=== PATIENT | female | born 1960 | race Caucasian/White ===

== ENCOUNTER → 2020-07-16 | Outpatient (CLI) | payer BC ==
--- NOTE | 2020-07-16 14:58 | BD ---
EXAMINATION TYPE: Axial Bone Density DATE OF EXAM: 07/16/2020 COMPARISON: NONE CLINICAL HISTORY: 59 YR OLD FEMALE...ICD-10 CODE: Z78.0 POST MENOPAUSAL Height: 65.5 Weight: 131 FRAX RISK QUESTIONS: Family History (Parent hip fracture): YES RISK FACTORS HISTORY OF: FRACTURED TOE ONLY IN THE PAST Family History of Osteoporosis: YES, HER MOTHER WITH HIP FX AND PELVIS FXS Postmenopausal woman: YES AT ABOUT AGE 51 Take estrogen and/or progesterone medications: ONLY BCPs IN THE PAST, NONE NOW Lost more than 2 inches in height since high school: YES, 5'10" IN HIGH SCHOOL Hyperparathyroidism: NO Adrenal Insufficiency: NO MEDICATIONS: Additional Medications: BP MEDS, MARIJUANA SMOKER, MELATONIN, AND SLEEP AID, MULTIVITAMIN Additional History: OSTEOARTHRITIS, EXAM MEASUREMENTS: Bone mineral densitometry was performed using the [employer]. Bone mineral density as measured about the Lumbar spine is: ----- L1-L4(G/cm2): 1.215 T Score Values are as follows: ----- L1: 0.1 ----- L2: 0.0 ----- L3: 0.5 ----- L4: 0.4 ----- L1-L4: 0.3 Bone mineral density FIRST BONE DENSITY AT [facility] Bone mineral density about the R hip (g/cm2): 0.710 Bone mineral density about the L hip (g/cm2): 0.638 T Score values are as follows: -----R Neck: -1.9 -----L Neck: -2.2 -----R Total: -2.4 -----L Total: -2.9 Bone mineral density FIRST BONE DENSITY AT [facility] FRAX%s: THERE IS A 18.3% CHANCE FOR A MAJOR OSTEOPOROTIC FX AND A 1.7% FOR HIP.....PROBABILITY FOR FX IN 10 YRS TIME IMPRESSION: Osteopenia (T Score between -2.5 and -1). There is slightly increased risk of fracture and the patient may be considered for treatment. Re-Screen 2-5 years. NOTE: T-SCORE=SD OF THE YOUNG ADULT MEAN.
--- NOTE | 2020-07-17 11:28 | MM ---
Reason for exam: screening (asymptomatic). Last mammogram was performed 16 years ago. History: Patient is postmenopausal. Benign cyst aspiration of the left breast, July 28, 2004. Benign cyst aspiration of the right breast, July 28, 2004. Benign ultrasound-guided cyst aspiration of the left breast, July 28, 2004. Benign ultrasound-guided cyst aspiration of the left breast, July 28, 2004. Benign ultrasound-guided cyst aspiration of the left breast, July 28, 2004. 4 cyst aspirations of the left breast. Cyst aspiration of the right breast. Excisional biopsy of the left breast. Took hormonal contraceptives for 4 years. Physical Findings: A clinical breast exam by your physician is recommended on an annual basis and results should be correlated with mammographic findings. MG Screening Mammo w CAD Bilateral CC and MLO view(s) were taken. No prior studies available for comparison. Finding #1: There are varied sized, high density masses located 4 cm from the nipple on the left breast and 5-6 cm from the nipple on the right breast. Finding #2: There are indeterminate calcifications in both breasts. ASSESSMENT: Incomplete: need additional imaging evaluation, BI-RAD 0 RECOMMENDATION: Special view mammogram and ultrasound of both breasts. [facility] will attempt to contact patient to return for supplemental views and ultrasound.
== END | disposition home or self-care (01) ==
LOC: RADMAMWWP 07:37
PROVIDERS: ATTEND Family Medicine
DX: Z12.31 Encounter for screening mammogram for malignant neoplasm of breast (principal); M85.80 Other specified disorders of bone density and structure, unspecified site; Z78.0 Asymptomatic menopausal state
CPT/HCPCS: 77067; 77080

== ENCOUNTER → 2020-08-28 | Outpatient (CLI) | payer BC ==
--- NOTE | 2020-08-30 11:02 | MM ---
Reason for exam: additional evaluation requested from abnormal screening. Last mammogram was performed 1 month ago. History: Patient is postmenopausal. Benign cyst aspiration of the left breast, July 28, 2004. Benign cyst aspiration of the right breast, July 28, 2004. Benign ultrasound-guided cyst aspiration of the left breast, July 28, 2004. Benign ultrasound-guided cyst aspiration of the left breast, July 28, 2004. Benign ultrasound-guided cyst aspiration of the left breast, July 28, 2004. 4 cyst aspirations of the left breast. Cyst aspiration of the right breast. Excisional biopsy of the left breast. Took hormonal contraceptives for 4 years. Physical Findings: Nurse did not find any significant physical abnormalities on exam. MG 3D Work Up W/Cad TENZIN Bilateral spot compression CC and spot compression LM view(s) were taken. CC with magnification and LM with magnification view(s) were taken of the right breast. Prior study comparison: July 16, 2020, bilateral MG screening mammo w CAD. Finding: There are intermediate concern, suspicious, fine, grouped/clustered calcifications in the upper inner quadrant, anterior position of the right breast 2cm from the nipple. Asymmetries left breast, ultrasound recommended. Focal asymmetry. New finding since July 16, 2020. These results were verbally communicated with the patient and result sheet given to the patient on 08/28/20. ASSESSMENT: Incomplete: need additional imaging evaluation, BI-RAD 0 RECOMMENDATION: Ultrasound of both breasts. Stereotactic core biopsy of the right breast. (right breast calcification) Called Dr. Rojas's office with mammographic findings and has scheduled an appointment for the patient for 09/26/20 at 11:[address] Dolan. Ultrasound biopsy scheduled for 09/26/20 at 1 o'clock. Stereotactic core biopsy scheduled for 10/04/20 at 8 o'clock. PRELIMINARY REPORT CALLED AND FAXED TO DR. DOLAN ON 08/30/20.
--- NOTE | 2020-08-30 11:07 | USB ---
Reason for exam: additional evaluation requested from abnormal screening. History: Patient is postmenopausal. Benign cyst aspiration of the left breast, July 28, 2004. Benign cyst aspiration of the right breast, July 28, 2004. Benign ultrasound-guided cyst aspiration of the left breast, July 28, 2004. Benign ultrasound-guided cyst aspiration of the left breast, July 28, 2004. Benign ultrasound-guided cyst aspiration of the left breast, July 28, 2004. 4 cyst aspirations of the left breast. Cyst aspiration of the right breast. Excisional biopsy of the left breast. Took hormonal contraceptives for 4 years. US Breast Workup TENZIN Right complete breast ultrasound includes all four quadrants, the retroareolar region and axilla. Finding demonstrates a 0.7 x 0.6 x 0.3cm vascular lesion, possible node at 8 o'clock, a 0.9 x 0.9 x 0.7cm solid, hypoechoic lesion at 9 o'clock and a 0.3 x 0.3 x 0.3cm mixed lesion at 10 o'clock. Follow up in 6 months depending on other biopsy results. Left complete breast ultrasound includes all four quadrants, the retroareolar region and axilla. Finding demonstrates a 1.1 x 1.2 x 0.8cm solid, hypoechoic lesion at 3 o'clock, cyst aspiration or biopsy recommended, a 2.0 x 1.9cm duct with debris at 4 o'clock, questionable papilloma, follow up or biopsy depending on other biopsy results and a 1.1 x 1.1 x 1.2cm solid, hypoechoic lesion at 6 o'clock, biopsy recommended. These results were verbally communicated with the patient and result sheet given to the patient on 08/28/20. ASSESSMENT: Suspicious, BI-RAD 4 RECOMMENDATION: Ultrasound core biopsy of the left breast. (x 2) Stereotactic core biopsy of the right breast. (right calcification) Called Dr. Rojas's office with mammographic findings and has scheduled an appointment for the patient for 09/26/20 at 11:[address] Dolan. Ultrasound biopsy scheduled for 09/26/20 at 1 o'clock. Stereotactic core biopsy scheduled for 10/04/20 at 8 o'clock. PRELIMINARY REPORT CALLED AND FAXED TO DR. DOLAN ON 08/30/20.
== END | disposition home or self-care (01) ==
LOC: RADMAMWWP 08:47
PROVIDERS: ATTEND Family Medicine
DX: R92.8 Other abnormal and inconclusive findings on diagnostic imaging of breast (principal)
CPT/HCPCS: 77062; 77066

== ENCOUNTER → 2020-09-26 | Outpatient (CLI) | payer BC ==
--- NOTE | 2020-09-26 11:40 | P.GSHP ---
History of Present Illness H&P Date: 09/26/20 Chief Complaint: abnromal mamogram and ultrasond of the breast Shantanu is a 60 year old whtie female seen for DF. Rojas with a complaint of abnormal she had a bilateral diagnostic mammogram performed on 1220 [id number]. This revealed microcalcifications in the right breast and some densities in the left breast. Bilateral diagnostic mammograms were recommended. On the right breast finding/grouped calcifications were noted in the upper inner quadrant and in the left breast some asymmetries were noted ultrasound is recommended of both breasts. The diagnostic mammogram was performed and 2321 as were the ultrasounds. Ultrasound of the right breast revealed a 0.7 x 0.6 cm vascular lesion possible noted 8:00, a 0.9 x 0.9 cm solid lesion at 9:00, and a 0.3 x 0.3 cm lesion at 10:00 follow-up in 6 months depending another biopsy was recommended Left breast ultrasound revealed a 1.1 cm solid lesion at 3:00 cyst aspiration or biopsy recommended, a 2 x 1.9 cm duct with debris at 4:00 questionable papilloma, follow-up or biopsy depending another biopsy results and a 1.1 x 1.2 cm solid lesion at 6:00 biopsy recommended. The final recommendation was stereotactic core biopsy of the right breast with a repeat ultrasound in 6 months depending on biopsy results Ultrasound core biopsy of the left breast 2 sites with questionable biopsy of the dilated duct depending on results of the biopsy. She does not feel any lumps masses or nodules in her breast. Her last mamogram prior to this was about 15 years ago. She denies feeling depressed but had decided to be healthy and therefore had a screening mammogram performed. She is not complaining of any new lumps masses or nodules in her breast. She has no new nipple discharge or skin changes. She is not reporting any history of recent trauma or infection in the breast. She had a left breast cyst removed in the operating room approximately 20 years ago. She has not had any other surgery on her breast. She did have the COVID vaccine within several weeks proximity to the follow-up mammogram. She did have flu like symptoms after the vaccine. She did not notice any swollen nodes. Caffeine: 10/cups of coffee day nicotine: none reg-bromine: daily Family history: father: lung cancer smoker nephew: leukemia Hormonal History: menarche: 11 , 1 miscarriage 1 , age at first : 18, breast fed: yes menopause: 51 BCP: 5 years hormones: none Surgical history: Right knee replacement Cyst removed in left breast Medical History: none Social History: smoke: none alcohol: twice a week/ 1 or 2 beer drugs: Marijuana daily, for anxiety - Constitutional Constitutional: Reports sweats - EENT Comment: bilateral cataracts Eyes: denies blurred vision, denies pain Ears: deny: decreased hearing, tinnitus Ears, nose, mouth and throat: Reports headache, Denies sore throat - Breasts Breasts: bilateral: as per HPI - Cardiovascular Cardiovascular: Denies chest pain, Denies shortness of breath - Respiratory Respiratory: Denies cough, Denies 7 - Gastrointestinal Gastrointestinal: Denies abdominal pain, Denies diarrhea, Denies nausea, Denies vomiting - Genitourinary (Female) Genitourinary: Denies dysuria, Denies hematuria - Menstruation Menstruation: Reports postmenopausal - Musculoskeletal Musculoskeletal: Denies myalgias - Integumentary Integumentary: Reports pruritus, Denies rash - Neurological Neurological: Denies numbness, Denies weakness - Psychiatric Psychiatric: Reports anxiety, Reports depression - Endocrine Endocrine: Denies fatigue, Denies weight change - Hematologic/Lymphatic Comment: none - Allergic/Immunologic Allergic/Immunologic: Reports as per HPI Past Medical History Past Medical History: Osteoarthritis (OA) Additional Past Medical History / Comment(s): 09/21/14 Pt admitted to floor s/p total R knee surgery. Other HX: past hx. migraines. Benign Breasts cysts and have been excised History of Any Multi-Drug Resistant Organisms: None Reported Past Surgical History: Breast Surgery, Joint Replacement Additional Past Surgical History / Comment(s): 11/19/14 Total R knee arthroplasy, breast biopsies, D & C Past Anesthesia/Blood Transfusion Reactions: Motion Sickness Past Psychological History: Anxiety Smoking Status: Former smoker Past Alcohol Use History: Occasional Past Drug Use History: None Reported - Past Family History Mother Family Medical History: Deep Vein Thrombosis (DVT) Father Family Medical History: Cancer Medications and Allergies Home Medications Medication Instructions Recorded Confirmed Type Ascorbic Acid [Vitamin C] 500 mg PO DAILY 11/19/14 09/26/20 History Melatonin 1 mg PO HS 09/18/20 09/26/20 History Multivitamins, Thera [Multivitamin 1 tab PO DAILY 09/18/20 09/26/20 History (formulary)] cloNIDine HCL [Catapres] 0.2 mg PO HS 09/18/20 09/26/20 History Allergies Allergy/AdvReac Type Severity Reaction Status Date / Time No Known Allergies Allergy Verified 09/26/20 11:08 Surgical - Exam Vital Signs Temp Pulse Resp BP Pulse Ox 98.0 F 89 18 127/76 96 09/26/20 11:09 09/26/20 11:09 09/26/20 11:09/26/20 11:09 09/26/20 11:09 BMI 21.5 - General well developed - Eyes normal ocular movement - ENT normal pinna, normal nares - Neck no masses, trachea midline - Respiratory normal expansion, normal respiratory effort - Cardiovascular Rhythm: regular Heart Sounds: normal: S1, S2 - Abdomen Abdomen: soft - Integumentary normal turgor - Neurologic no disoriented, no combative - Musculoskeletal normal gait - Psychiatric oriented to time, oriented to person, oriented to place, speech is normal, memory intact breast exam: BRA: 36B inspection: Bilateral grade 3 ptosis Palpation: Right breast: Multi-positional exam fibrocystic changes, no dominant masses or nodules of concern Right axilla: No adenopathy of concern Left breast: Multi-positional exam fibrocystic changes, no dominant masses or nodules of concern Left axilla: No adenopathy of concern Results Mammogram and ultrasound results reviewed Assessment and Plan Assessment: Impression: 1. Bilateral radiographic breast abnormalities Right breast with microcalcifications for which stereotactic core biopsy is recommended, left breast ultrasound abnormalities for which ultrasound-guided core biopsy of 2 areas is recommended. 2. Fibrocystic breast changes 3. Anxiety 4. Night sweats 5. Heavy caffeine intake/10 cups of coffee per day Plan: 1. Ultrasound core biopsy 2 areas of concern in the left breast 2. Stereotactic core biopsy of the right breast 3. Follow-up after biopsies for further recommendation 4. Patient recommended to decrease caffeine intake to help decrease fibrocystic breast changes The patient is going to have a stereotactic core biopsy of the right breast, depending on the pathology she would either have a repeat right breast ultrasound and mammogram in 6 months or for some ultrasound core biopsy of the other lesions noted in the right breast. The patient is going to have ultrasound core biopsy of 2 areas of concern in the left breast, if these are nonbilious and she will most likely have a repeat left breast mammogram and ultrasound in 6 months with is any concern on the pathology. Which was possibly dilated duct will be recommended for core biopsy as well. Cc: Dr. Rojas
== END | disposition home or self-care (01) ==

== ENCOUNTER → 2020-09-26 | Day surgery (SDC) | payer BC ==
[2020-09-26 12:35] VITALS: RESP 16
[2020-09-26 13:49] VITALS: BP 127/81; PULSE 73; TEMP 98.1
--- NOTE | 2020-09-26 14:25 | USB ---
EXAMINATION TYPE: US biopsy breast VAD LT, US biopsy breast add'l VAD LT, US biopsy breast add'l VAD LT, MG diagnostic mammo LT wo CAD DATE OF EXAM: 09/26/2020 CLINICAL HISTORY: R92.8 Abnormal Mammogram 2 site. Abnormal ultrasound. TECHNIQUE: Ultrasound guided core biopsy of left breast with clip placement- based sites and follow-up diagnostic left breast mammogram. COMPARISON: Prior bilateral breast ultrasound and mammogram August 28, 2020. FINDINGS: The procedure of ultrasound guided core biopsy was explained to the patient. Benefits, alternatives, and risks were discussed. An informed consent was then obtained. The patient was placed in supine positioning for imaging and for the procedure. Case reviewed with surgeon prior to procedure. Surgeon wishes to defer right- sided sampling of the most suspicious 9:00 lesion until after right-sided stereotactic guided core biopsy. Preprocedure ultrasound redemonstrates 3 suspicious areas left breast. The overlying skin was prepped and draped in usual sterile fashion. Lidocaine is used as anesthetic into the skin and subcutaneous tissue up to area of concern in the left breast. Lidocaine with epinephrine is used as anesthetic in the deeper tissues. Under ultrasound guidance, a fine needle aspiration attempt at the 3:00 lesion with 18-gauge needle is unsuccessful in retrieving fluid. Following this, 2 core samples obtained at all sites utilizing vacuum-assisted biopsy device. Following this, a biopsy clip was left in each lesion. The patient tolerated the procedure well without any immediate complication. The patient was kept in the radiology department for short stay after the procedure and then discharged home in stable condition. Postprocedure mammogram confirms successful deployment of all 3 clips. IMPRESSION: Successful, uncomplicated ultrasound guided core biopsy of 3 areas of concern in the left breast, full pathology results to follow. Intermediate index of suspicion noted at 3:00 and 6:00 lesions. Low to intermediate index of suspicion noted at 4:00 lesion. Pathology Results: Benign A. LEFT BREAST, 3:00 POSITION, CORE BIOPSY: Fragments of benign fibrotic cyst with focal microcalcification and hypocellular stromal fibrosis. Current specimen negative for diagnostic in situ or invasive carcinoma. B. LEFT BREAST, 4:00 POSITION, CORE BIOPSY: Hypocellular stromal fibrosis with focal microcalcification and focal usual ductal hyperplasia. Current specimen negative for diagnostic in situ or invasive carcinoma. C. LEFT BREAST, 6:00 POSITION, CORE BIOPSY: Fragments of benign fibrotic cyst with microcalcification. Current specimen negative for diagnostic in situ or invasive carcinoma. Recommendation Follow up ultrasound of the left breast in 6 months. MTDD
== END ==
LOC: RADUSWWP 11:43
PROVIDERS: ATTEND Surgery
DX: N60.12 Diffuse cystic mastopathy of left breast (principal); R92.0 Mammographic microcalcification found on diagnostic imaging of breast; N62 Hypertrophy of breast; R92.8 Other abnormal and inconclusive findings on diagnostic imaging of breast
CPT/HCPCS: 88305; 77065; 19083; 19084 ×2; A4648; J2001

== ENCOUNTER → 2020-10-04 | Day surgery (SDC) | payer BC ==
[2020-10-04 07:22] VITALS: RESP 16; TEMP 98.2
[2020-10-04 08:44] VITALS: BP 153/80; PULSE 83
--- NOTE | 2020-10-04 09:06 | P.PCN ---
Date of Procedure: 10/04/20 Preoperative Diagnosis: Microcalcifications of concern right breast upper inner quadrant Postoperative Diagnosis: Same Procedure(s) Performed: Right breast stereotactic core biopsy Anesthesia: local Surgeon: Brianda Dolan Pathology: other (Breast tissue, positive calcifications in specimen) Condition: stable Disposition: same day Indications for Procedure: Microcalcifications right breast upper inner quadrant of concern Operative Findings: Microcalcifications noted in specimen Description of Procedure: Shantanu is a 60-year-old white female who was noted on a mammogram to have suspicious calcifications in the right breast. These were in the upper inner quadrant. Stereotactic core biopsy was recommended. Risks and benefits of the procedure were discussed with the patient. She understood and wished to proceed. The patient was taken to the stereotactic core biopsy wound. A blaster helper film was obtained. A lateral to medial approach was utilized. The area of concern was noted to be present on the blaster helper film. The breast was prepped using Betadine. 20 mL of 1% lidocaine were used anesthetize the area of concern. A 9-gauge retrocystic rotating biopsy needle was driven to the correct coordinates. The needle was fired. A postoperative film was obtained and revealed the needle to be in the correct location. All specimens were obtained. Radiograph of the specimens revealed the microcalcifications of concern had been sampled. A top. At secure regina marker was placed. This was noted to be in the correct location. The patient tolerated the procedure in stable condition. The breast was sent to pathology. The patient will follow-up with Dr. Miguel in 1 week. Of importance is the fact that the patient has had the ultrasound core biopsies of the contralateral left breast. Pathology and each of these was benign and felt to be benign concordant. The patient and her were told the information regarding the core biopsy results on the left breast. Impression: 1. Ultrasound core biopsy benign left breast repeat left breast mammogram and ultrasound in 6 months 2. Await results of right breast stereotactic core biopsy Cc: Dr. Rojas
--- NOTE | 2020-10-04 16:53 | MM ---
EXAMINATION TYPE: MG stereo VAD BX RT DATE OF EXAM: 10/04/2020 COMPARISON: 08/28/2020 and 07/16/2020 CLINICAL HISTORY: 60-year-old female status post recent ultrasound-guided biopsy 3 sites of the left breast. Here for stereotactic core needle biopsy right breast for lateral anterior microcalcifications. TECHNIQUE: Stereotactic guided core biopsy of the right breast. FINDINGS: The procedure of stereotactic guided core biopsy was explained to the patient. Benefits, alternatives, and risks were discussed. An informed consent was then obtained. [facility]. Shortness pathway was a lateral approach. I performed the localization, then surgeon, Dr. Lamont Zamarripa performed the remainder of the procedure. A vacuum assisted biopsy gun was used to obtain multiple core samples. The patient tolerated the procedure well without any immediate complication. The patient was kept in the radiology department for short stay after the procedure and then discharged home in stable condition. Targeted calcifications are identified in specimen mammogram. Post biopsy mammogram shows the clip to appear in satisfactory position relative to the targeted area of concern on the preprocedure images. IMPRESSION: SUCCESSFUL, UNCOMPLICATED STEREOTACTIC GUIDED CORE BIOPSY OF ANTERIOR LATERAL RIGHT BREAST MICROCALCIFICATIONS. FULL PATHOLOGY RESULTS TO FOLLOW. RECOMMENDATION: 1. Await pathology results of the lateral anterior right breast microcalcifications. 2. If benign results, bilateral diagnostic mammograms in 6 months as well as right breast ultrasound for the 9:00 and 10:00 areas. Pathology Results: Benign RIGHT BREAST, STEREOTACTIC CORE BIOPSY: Fibrocystic changes including fibrosis, cysts, columnar cell change and microcalcifications. Features focally suggestive of ruptured cyst with associated histiocytes and dystrophic calcifications. Recommendation 1. Follow up bilateral diagnositic mammograms in 6 months as above. 2. Also, 6 month followup right breast ultrasound for the 9 and 10:00 areas. [facility]
== END ==
LOC: RADMAMWWP 07:03
PROVIDERS: ATTEND Surgery
DX: N60.11 Diffuse cystic mastopathy of right breast (principal); R92.0 Mammographic microcalcification found on diagnostic imaging of breast
CPT/HCPCS: 88305; 19081; A4648; J2001

== ENCOUNTER → 2020-10-11 | Outpatient (CLI) | payer BC ==
[2020-10-11 11:08] VITALS: BP 143/91; PULSE 77; RESP 18; TEMP 97.4
--- NOTE | 2020-10-11 11:22 | P.PN ---
Progress Note - Text Progress Note Date: 10/11/20 Shantanu is a 60-year-old white female who comes in for results a stereotactic core biopsy of the right breast. Pathology revealed fibrocystic changes including fibrosis, cysts, columnar cell change, and microcalcifications. Features focally suggestive of ruptured cyst with associated histiocytes and dystrophic calcifications. This was felt to be benign specific. [place] [address]. The patient also had 3 areas of concern biopsied in the left breast. Ultrasound core biopsy these were also benign and felt to be benign concordant. She tolerated the biopsy without difficulty. She has no complaints at this time. Physical Exam: bilateral breast incision sites clean and dry, resolving ecchymosis, no evidence of infection or hematoma Impression: 1. Bilateral breast biopsies benign/cystic changes Plan: 1. Bilateral mammogram in 6 months with left breast ultrasound and physician exam at that time I discussed the results of the biopsy with the patient. She understands. If she notices anything of concern prior to this 6 months she will come and see us sooner. The patient is going to attempt to decrease caffeine intake. She does not smoke and is not exposed to secondhand smoke. CC: Dr. Rojas
== END ==
LOC: WWCWWP 11:00
PROVIDERS: ATTEND Surgery
DX: N60.11 Diffuse cystic mastopathy of right breast (principal); N60.12 Diffuse cystic mastopathy of left breast

== ENCOUNTER → 2021-04-08 | Outpatient (CLI) | payer BC ==
--- NOTE | 2021-04-08 10:01 | MM ---
Reason for exam: follow-up at short interval from prior study. Last mammogram was performed 6 months ago. History: Patient is postmenopausal. Benign MG stereo VAD BX RT of the right breast, October 04, 2020. Benign US biopsy breast VAD LT of the left breast, September 26, 2020. Benign US biopsy breast add'l VAD LT of the left breast, September 26, 2020. Benign US biopsy breast add'l VAD LT of the left breast, September 26, 2020. Benign cyst aspiration of the left breast, July 28, 2004. Benign cyst aspiration of the right breast, July 28, 2004. Benign ultrasound-guided cyst aspiration of the left breast, July 28, 2004. Benign ultrasound-guided cyst aspiration of the left breast, July 28, 2004. Benign ultrasound-guided cyst aspiration of the left breast, July 28, 2004. 4 cyst aspirations of the left breast. Cyst aspiration of the right breast. Excisional biopsy of the left breast. Took hormonal contraceptives for 4 years. Physical Findings: Nurse Summary: 1 x 1cm nodle in the right breast at 10 o'clock (nurse ts). MG Diagnostic Mammo w CAD TENZIN Bilateral CC and MLO view(s) were taken. Prior study comparison: September 26, 2020, left breast MG diagnostic mammo LT wo CAD. August 28, 2020, bilateral MG 3d work up w/cad TENZIN. July 16, 2020, bilateral MG screening mammo w CAD. The breast tissue is heterogeneously dense. This may lower the sensitivity of mammography. Previous mammotome biopsy in the right breast x 1 and in the left breast x 3. There is chronic nodularity in the right breast. Palpable marker right upper outer quadrant. Multiple areas of asymmetric densities are redemonstrated bilaterally. Medial central nodularity left breast is decreased. These results were verbally communicated with the patient and result sheet given to the patient on 04/08/21. ASSESSMENT: Incomplete: need additional imaging evaluation, BI-RAD 0 RECOMMENDATION: Ultrasound of both breasts.
--- NOTE | 2021-04-08 10:16 | USB ---
Reason for exam: additional evaluation requested from abnormal screening. History: Patient is postmenopausal. Benign MG stereo VAD BX RT of the right breast, October 04, 2020. Benign US biopsy breast VAD LT of the left breast, September 26, 2020. Benign US biopsy breast add'l VAD LT of the left breast, September 26, 2020. Benign US biopsy breast add'l VAD LT of the left breast, September 26, 2020. Benign cyst aspiration of the left breast, July 28, 2004. Benign cyst aspiration of the right breast, July 28, 2004. Benign ultrasound-guided cyst aspiration of the left breast, July 28, 2004. Benign ultrasound-guided cyst aspiration of the left breast, July 28, 2004. Benign ultrasound-guided cyst aspiration of the left breast, July 28, 2004. 4 cyst aspirations of the left breast. Cyst aspiration of the right breast. Excisional biopsy of the left breast. Took hormonal contraceptives for 4 years. US Breast BILAT Right complete breast ultrasound includes all four quadrants, the retroareolar region and axilla. Finding demonstrates a 0.3 x 0.3 x 0.2cm oval, cystic lesion at 8 o'clock, a 0.3 x 0.3 x 0.2cm oval, cystic lesion at 9 o'clock, a 0.9 x 0.9 x 0.7cm oval, hypoechoic lesion at 10 o'clock, stable, possible debris filled cyst, a 0.5 x 0.5 x 0.3cm oval, cystic lesion at 11 o'clock near BB, dense tissue at the fine palpable and a 1.1 x 0.9 x 0.5cm lymph node at the axilla. Left complete breast ultrasound includes all four quadrants, the retroareolar region and axilla. Finding demonstrates a 2.3 x 1.0 x 0.3cm round, hypoechoic lesion at 3 o'clock biopsy site, clip seen, much smaller, a 0.6 x 0.5 x 0.2cm cystic lesion at 3 o'clock, clip seen, elongated, benign, a 1.3 x 1.1 x 0.4cm lesion at 6 o'clock, a 0.7 x 0.7 x 0.5cm hypoechoic lesion at 2 o'clock, clip seen, much smaller, benign and a 1.4 x 1.5 x 0.6cm benign lymph node at the axilla. These results were verbally communicated with the patient and result sheet given to the patient on 04/08/21. ASSESSMENT: Probably benign, BI-RAD 3 RECOMMENDATION: Follow-up diagnostic mammogram of both breasts in 1 year.
== END | disposition home or self-care (01) ==
LOC: RADMAMWWP 07:33
PROVIDERS: ATTEND Surgery
DX: N63.11 Unspecified lump in the right breast, upper outer quadrant (principal); N63.20 Unspecified lump in the left breast, unspecified quadrant; N60.01 Solitary cyst of right breast; N60.02 Solitary cyst of left breast; Z78.0 Asymptomatic menopausal state; Z79.3 Long term (current) use of hormonal contraceptives
CPT/HCPCS: 77066

== ENCOUNTER → 2021-04-17 | Outpatient (CLI) | payer BC ==
[2021-04-17 14:13] VITALS: BP 156/77; PULSE 83; RESP 12; TEMP 98
--- NOTE | 2021-04-17 14:14 | P.PN ---
Subjective Progress Note Date: 04/17/21 Principal diagnosis: Bilateral fibrocystic breast changes Shantanu is a 60 year old white female status post bilateral [place] [address] which was fibrocystic change, and 3 left breast core biopsies on 3421 with which were benign. The patient at this time does not note anything that she is concerned about. She is not complaining of any new breast lesions once masses or nodules. [place] [address] as well as a bilateral ultrasound. Findings were felt to be probably benign BIRADS. Follow-up diagnostic mammogram of the breast in 1 year was recommended. The patient at this time is interested in having bilateral breast augmentation. Caffeine: 10/cups of coffee day nicotine: none reg-bromine: daily Family history: father: lung cancer smoker nephew: leukemia Hormonal History: menarche: 11 , 1 miscarriage 1 , age at first : 18, breast fed: yes menopause: 51 BCP: 5 years hormones: none Surgical history: Right knee replacement Cyst removed in left breast Medical History: none Social History: smoke: none alcohol: twice a week/ 1 or 2 beer drugs: Marijuana daily, for anxiety - Constitutional Constitutional: Reports sweats - EENT Comment: bilateral cataracts Eyes: denies blurred vision, denies pain Ears: deny: decreased hearing, tinnitus Ears, nose, mouth and throat: Reports headache, Denies sore throat - Breasts Breasts: bilateral: as per HPI - Cardiovascular Cardiovascular: Denies chest pain, Denies shortness of breath - Respiratory Respiratory: Denies cough - Gastrointestinal Gastrointestinal: Denies abdominal pain, Denies diarrhea, Denies nausea, Denies vomiting - Genitourinary (Female) Genitourinary: Denies dysuria, Denies hematuria - Menstruation Menstruation: Reports postmenopausal - Musculoskeletal Musculoskeletal: Denies myalgias - Integumentary Integumentary: Reports pruritus, Denies rash - Neurological Neurological: Denies numbness, Denies weakness - Psychiatric Psychiatric: Reports anxiety, Reports depression - Endocrine Endocrine: Denies fatigue, Denies weight change - Hematologic/Lymphatic Comment: none - Allergic/Immunologic Allergic/Immunologic: Reports as per HPI Objective - Constitutional General appearance: Present: cooperative - EENT Eyes: Present: EOMI ENT: Present: hearing grossly normal - Neck Neck: Present: normal ROM - Respiratory Respiratory: bilateral: CTA - Cardiovascular Rhythm: regular Heart sounds: normal: S1, S2 - Gastrointestinal General gastrointestinal: Present: soft - Integumentary Integumentary: Present: normal turgor - Musculoskeletal Musculoskeletal: Present: gait normal - Psychiatric Psychiatric: Present: A&O x's 3, appropriate affect, intact judgment & insight - Additional findings Additional findings: Breast examination: Block: 36B Inspection: Bilateral grade 3 ptosis Palpation: Right breast: Multi-positional exam fibrocystic changes no dominant masses or nodules of concern Right axilla: No adenopathy of concern Left breast: Multiple positional exam fibrocystic changes, no dominant masses or nodules of concern Left axilla: No adenopathy of concern Assessment and Plan Assessment: Impression: 1. Bilateral fibrocystic breast changes 2. Caffeine/10 cups per day 3. Recent bilateral mammogram and ultrasound benign BIRADS 3 recommend repeat bilateral mammogram in 6 months 4. Patient is considering bilateral augmentation of her breast Plan: 1. We'll suggest patient's decrease caffeine intake to decrease fibrocystic changes 2. Patient at this time does not have any premalignant lesion noted in her breast which would prevent her from having breast augmentation. She understands her breast may be more difficult to examine with implants in place and is going to consider this. 3. Bilateral mammogram in physician exam in 6 months CC: Dr. Rojas
== END ==
LOC: WWCWWP 13:29
PROVIDERS: ATTEND Surgery
DX: N60.11 Diffuse cystic mastopathy of right breast (principal); N60.12 Diffuse cystic mastopathy of left breast; F15.20 Other stimulant dependence, uncomplicated; Z87.891 Personal history of nicotine dependence

== ENCOUNTER → 2021-09-19 | Outpatient (CLI) | payer BC ==
[2021-09-20 13:12] LABS: Coronavirus SARS CoV-2 Not Detected (Not Detected)
== END | disposition home or self-care (01) ==
LOC: LABPAT 15:05
PROVIDERS: ATTEND Oral & Maxillofacial Surgery
DX: Z01.812 Encounter for preprocedural laboratory examination (principal); Z20.822 Contact with and (suspected) exposure to COVID-19
CPT/HCPCS: U0003; C9803

== ENCOUNTER → 2022-04-13 | Outpatient (CLI) | payer BC ==
--- NOTE | 2022-04-13 11:40 | MM ---
Reason for Exam: Hx of benign breast biopsy. Last screening mammogram was performed 12 month(s) ago. Patient History: Menarche at age 11. First Full-Term at age 19. Postmenopausal. Patient has history of breast feeding. Patient used Hormonal Contraceptives for 4 years. Cyst Aspiration on the Right side. Cyst Aspiration on the Left side. Cyst Aspiration on the Left side. Cyst Aspiration on the Left side. Cyst Aspiration on the Left side. Excisional Biopsy on the Left side. 10/04/2020, Benign Core Biopsy on the right side. 09/26/2020, Benign Core Biopsy on the left side. 09/26/2020, Benign Core Biopsy on the left side. 09/26/2020, Benign Core Biopsy on the left side. 07/28/2004, Benign Ultrasound-Guided Cyst Aspiration on the left side. 07/28/2004, Benign Cyst Aspiration on the left side. 07/28/2004, Benign Cyst Aspiration on the right side. 07/28/2004, Benign Ultrasound-Guided Cyst Aspiration on the left side. 07/28/2004, Benign Ultrasound-Guided Cyst Aspiration on the left side. 10/07/2021, Bilateral Implants. Risk Values: Rosemary 5 year model risk: 2.1%. NCI Lifetime model risk: 9.2%. Prior Study Comparison: 08/28/2020 Bilateral Diagnostic Mammogram, [facility]. 09/26/2020 Left Diagnostic Mammogram, [facility]. 04/08/2021 Bilateral Diagnostic Mammogram, [facility]. Tissue Density: The breast tissue is heterogeneously dense. This may lower the sensitivity of mammography. Findings: Analyzed By CAD. Interval placement of bilateral retropectoral silicone implants. Redemonstrated 3 microclips left breast and one in the right breast. There is chronic bilateral nodularity. Scattered benign calcifications comprised by a few vascular calcifications and some oral cyst calcifications redemonstrated on both sides. No significant change from prior exams. Overall Assessment: Benign, BI-RAD 2 Management: Diagnostic Mammogram of both breasts in 1 year. Patient should continue monthly self breast exams. This exam should not preclude additional follow-up of suspicious palpable abnormalities.. Electronically signed and approved by: Vu Son M.D. Radiologist
== END | disposition home or self-care (01) ==
LOC: RADMAMWWP 10:46
PROVIDERS: ATTEND Surgery
DX: R92.8 Other abnormal and inconclusive findings on diagnostic imaging of breast (principal); Z78.0 Asymptomatic menopausal state
CPT/HCPCS: 77066

== ENCOUNTER → 2022-04-16 | Outpatient (CLI) | payer BC ==
[2022-04-16 15:10] VITALS: BP 148/88; PULSE 87; RESP 18; TEMP 97.8
--- NOTE | 2022-04-16 15:16 | P.PN ---
Subjective Progress Note Date: 04/16/22 Principal diagnosis: Fibrocystic breast changes Bilateral fibrocystic breast changes Shantanu is a 61 year old white female status post bilateral [place] [address] which was fibrocystic change, and 3 left breast core biopsies on 3421 with which were benign. The patient at this time does not note anything that she is concerned about. She is not complaining of any new breast lesions once masses or nodules. She underwent a repeat bilateral mammogram on which was BIRAD 2. Follow-up diagnostic mammogram of the breast in 1 year was recommended. The patient at this time has bilateral breast implants in September 2021. These are subpectoral silicone implants. She is not complaining of any lumps, masses or nodules of concern. Rosemary risk evaluation 5 year: 2.1% Lifetime risk 9.2% Patient has declined risk reduction medication . Caffeine: 10/cups of coffee day nicotine: none reg-bromine: daily Family history: father: lung cancer smoker nephew: leukemia Hormonal History: menarche: 11 , 1 miscarriage 1 , age at first : 18, breast fed: yes menopause: 51 BCP: 5 years hormones: none Surgical history: Right knee replacement Cyst removed in left breast implants breast bilateral varicose veins Medical History: none Social History: smoke: none alcohol: twice a week/ 1 or 2 beer drugs: Marijuana daily, for anxiety - Constitutional Constitutional: Reports sweats - EENT Comment: bilateral cataracts Eyes: denies blurred vision, denies pain Ears: deny: decreased hearing, tinnitus Ears, nose, mouth and throat: Reports headache, Denies sore throat - Breasts Breasts: bilateral: as per HPI - Cardiovascular Cardiovascular: Denies chest pain, Denies shortness of breath - Respiratory Respiratory: Denies cough - Gastrointestinal Gastrointestinal: Denies abdominal pain, Denies diarrhea, Denies nausea, Denies vomiting - Genitourinary (Female) Genitourinary: Denies dysuria, Denies hematuria - Menstruation Menstruation: Reports postmenopausal - Musculoskeletal Musculoskeletal: Denies myalgias - Integumentary Integumentary: Reports pruritus, Denies rash - Neurological Neurological: Denies numbness, Denies weakness - Psychiatric Psychiatric: Reports anxiety, Reports depression - Endocrine Endocrine: Denies fatigue, Denies weight change - Hematologic/Lymphatic Comment: none - Allergic/Immunologic Allergic/Immunologic: Reports as per HPI Objective - Constitutional General appearance: Present: cooperative - EENT Eyes: Present: EOMI ENT: Present: hearing grossly normal - Neck Neck: Present: normal ROM - Respiratory Respiratory: bilateral: CTA - Cardiovascular Heart sounds: normal: S1, S2 - Integumentary Integumentary: Present: normal turgor - Musculoskeletal Musculoskeletal: Present: gait normal - Psychiatric Psychiatric: Present: A&O x's 3, appropriate affect, intact judgment & insight - Additional findings Additional findings: Breast examination: BRA: 36c Inspection: Bilateral grade 1/2 ptosis; lateral reduction mammoplasty incisions utilized to give the patient a left and then implants were placed Palpation: Right breast: Multi-positional exam fibrocystic changes no dominant masses or nodules of concern; implant in place Right axilla: No adenopathy of concern Left breast: Multiple positional exam fibrocystic changes, no dominant masses or nodules of concern; implant in place Left axilla: No adenopathy of concern Assessment and Plan Assessment: Impression: Fibrocystic breast changes Bilateral mammogram on 04-13-22 anthony, DERRICK 2 Plan: Bilateral mammogram in 1 year with physician exam at that time CC: DR. Rojas
== END ==
LOC: WWCWWP 14:40
PROVIDERS: ATTEND Surgery
DX: N60.11 Diffuse cystic mastopathy of right breast (principal); N60.12 Diffuse cystic mastopathy of left breast; Z98.890 Other specified postprocedural states

== ENCOUNTER 2022-12-31 11:00 | Emergency (ER) | payer BC ==
[2022-12-31 11:34] VITALS: TEMP 98.2
[2022-12-31 12:39] LABS: Basophils # (A) 0.1 k/uL (0-0.2); Basophils % (A) 1 %; Eosinophils # (A) 0.1 k/uL (0-0.7); Eosinophils % (A) 2 %; HCT 40.2 % (34.0-46.0); HGB 13.4 gm/dL (11.4-16.0); Lymphocytes # (A) 2.4 k/uL (1.0-4.8); Lymphocytes % (A) 29 %; MCH 30.1 pg (25.0-35.0); MCHC 33.3 g/dL (31.0-37.0); MCV 90.4 fL (80.0-100.0); Mean Platelet Volume 7.7; Monocytes # (A) 0.3 k/uL (0-1.0); Monocytes % (A) 4 %; Neutrophils # (A) 5.3 k/uL (1.3-7.7); Neutrophils % (A) 64 %; Platelet Count 342 k/uL (150-450); RBC 4.45 m/uL (3.80-5.40); RDW 12.8 % (11.5-15.5); WBC 8.3 k/uL (3.8-10.6)
--- NOTE | 2022-12-31 12:48 | XR ---
EXAMINATION TYPE: XR chest 2V DATE OF EXAM: 12/31/2022 COMPARISON: None HISTORY: 62-year-old female with chest pain. TECHNIQUE: PA and lateral views FINDINGS: Heart is normal in size. Aorta and pulmonary vasculature within normal limits. No consolidation or pl eural effusion. Hyperinflation. IMPRESSION: COPD. No acute process seen.
[2022-12-31 12:51] LABS: ALT 20 U/L (4-34); AST 25 U/L (14-36); African American GFR (CKD) >90 (>60 ml/min/1.73 sqM); Albumin 4.2 g/dL (3.5-5.0); Alkaline Phosphatase 106 U/L (38-126); Anion Gap 8 mmol/L; Blood Urea Nitrogen 10 mg/dL (7-17); Carbon Dioxide 28 mmol/L (22-30); Chloride 103 mmol/L (98-107); Glucose 95 mg/dL (74-99); Magnesium 1.9 mg/dL (1.6-2.3); Non-African American GFR(CKD) >90 (>60 ml/min/1.73 sqM); Potassium 3.7 mmol/L (3.5-5.1); Sodium 139 mmol/L (137-145); Total Bilirubin 0.3 mg/dL (0.2-1.3); Total Protein 6.9 g/dL (6.3-8.2)
[2022-12-31 12:54] LABS: INR 0.9 (<1.2); Partial Thromboplastin Time 23.5 sec (22.0-30.0); Prothrombin Time 9.8 sec (9.0-12.0)
--- NOTE | 2022-12-31 13:48 | ED ---
Recheck HPI - General Chief Complaint: Recheck/Abnormal Lab/Rx Stated Complaint: hypertension Time Seen by Provider: 12/31/22 11:49 Source: patient, RN notes reviewed Mode of arrival: ambulatory Limitations: no limitations - History of Present Illness Initial Comments: 61-year-old female presents emergency department for evaluation of hypertension. Patient states that she felt like her heart was fluttering she was at work at [employer] when she rechecked her blood pressure noted to be elevated states she started several times and was elevated. She became concerned and presented emergency from. Patient states that she's been having some fasciculations of her left arm was not concerned about it until she started her symptoms. She denies any chest pain she does have mild headache which has resolved. She is no history of hypertension states that she does not take any new medications. Denies abdominal pain no leg swelling. - Related Data Home Medications Medication Instructions Recorded Confirmed No Known Home Medications 12/31/22 12/31/22 Allergies Allergy/AdvReac Type Severity Reaction Status Date / Time No Known Allergies Allergy Verified 12/31/22 12:34 Review of Systems ROS Statement: Those systems with pertinent positive or pertinent negative responses have been documented in the HPI. ROS Other: All systems not noted in ROS Statement are negative. Past Medical History Past Medical History: Osteoarthritis (OA), Seizure Disorder Additional Past Medical History / Comment(s): hx. migraines. Benign Breasts cysts and have been excised History of Any Multi-Drug Resistant Organisms: None Reported Past Surgical History: Breast Surgery, Joint Replacement Additional Past Surgical History / Comment(s): 11/19/14 Total R knee arthroplasy, breast biopsies, D & C Past Anesthesia/Blood Transfusion Reactions: Motion Sickness Past Psychological History: Anxiety Smoking Status: Former smoker Past Alcohol Use History: Occasional Past Drug Use History: Marijuana - Past Family History Mother Family Medical History: Deep Vein Thrombosis (DVT) Father Family Medical History: Cancer General Exam Limitations: no limitations General appearance: alert, in no apparent distress Head exam: Present: atraumatic, normocephalic, normal inspection Eye exam: Present: normal appearance, PERRL, EOMI. Absent: scleral icterus, conjunctival injection, periorbital swelling ENT exam: Present: normal exam, normal oropharynx, mucous membranes moist Neck exam: Present: normal inspection, full ROM. Absent: tenderness, meningismus, lymphadenopathy Respiratory exam: Present: normal lung sounds bilaterally. Absent: respiratory distress, wheezes, rales, rhonchi, stridor Cardiovascular Exam: Present: regular rate, normal rhythm, normal heart sounds. Absent: systolic murmur, diastolic murmur, rubs, gallop, clicks GI/Abdominal exam: Present: soft, normal bowel sounds. Absent: distended, tenderness, guarding, rebound, rigid Extremities exam: Present: other (Extremity pulses equal bilaterally). Absent: pedal edema, calf tenderness Neurological exam: Present: alert, oriented X3, CN II-XII intact, reflexes normal. Absent: motor sensory deficit Course Vital Signs 12/31/22 12/31/22 12/31/22 11:30 12:30 13:10 Temperature 98.2 F Pulse Rate 85 67 67 Respiratory 20 18 18 Rate Blood Pressure 165/74 155/111 146/96 O2 Sat by Pulse 97 Oximetry 12/31/22 12/31/22 13:20 13:59 Temperature Pulse Rate 70 75 Respiratory 13 18 Rate Blood Pressure 146/96 142/92 O2 Sat by Pulse 98 Oximetry Medical Decision Making - Medical Decision Making Was pt. sent in by a medical professional or institution (, PA, SCIENTIFIC EDITOR, urgent care, hospital, or assisted...) When possible be specific @ -No Did you speak to anyone other than the patient for history (EMS, parent, family, police, friend...)? What history was obtained from this source @ -No Did you review nursing and triage notes (agree or disagree)? Why? @ -I reviewed and agree with nursing and triage notes Were old charts reviewed (outside hosp., previous admission, EMS record, old EKG, old radiological studies, urgent care reports/EKG's, assisted records)? Report findings @ -No old charts were reviewed Differential Diagnosis (chest pain, altered mental status, abdominal pain women, abdominal pain men, vaginal bleeding, weakness, fever, dyspnea, syncope, headache, dizziness, GI bleed, back pain, seizure, CVA, palpatations, mental health, musculoskeletal)? @ -ADifferential Palpitations Ventricular arrhythmias, atrial arrhythmias, myocardial infarction, anemia, thyrotoxicosis, electrolyte imbalance, hypokalemia, pulmonary embolism, pulmonary disease, drugs, alcohol, anxiety, stress.... This is not meant to be an all-inclusive list.al EKG interpreted by me (3pts min.). @ -As above X-rays interpreted by me (1pt min.). @ -Chest x-ray shows no acute processes,changes COPD. CT interpreted by me (1pt min.). @ -None done U/S interpreted by me (1pt. min.). @ -None done What testing was considered but not performed or refused? (CT, X-rays, U/S, labs)? Why? @ -None What meds were considered but not given or refused? Why? @ -None Did you discuss the management of the patient with other professionals (professionals i.e. Dr., PA, SCIENTIFIC EDITOR, lab, RT, psych nurse, social service coordinator, keg inspector, teacher, parachute officer, case management director)? Give summary @ -No Was smoking cessation discussed for >3mins.? @ -No Was critical care preformed (if so, how long)? @ -No Were there social determinants of health that impacted care today? How? (Homelessness, low income, unemployed, alcoholism, drug addiction, transportation, low edu. Level, literacy, decrease access to med. care, shelter, rehab)? @ -No Was there de-escalation of care discussed even if they declined (Discuss DNR or withdrawal of care, Hospice)? DNR status @ -No What co-morbidities impacted this encounter? (DM, HTN, Smoking, COPD, CAD, Cancer, CVA, ARF, Chemo, Hep., AIDS, mental health diagnosis, sleep apnea, morbid obesity)? @ -None Was patient admitted / discharged? Hospital course, mention meds given and route, prescriptions, significant lab abnormalities, going to OR and other pertinent info. @ -Discharge patient had full workup including labs EKG and chest x-ray. Patient's been on the monitoring analyst showing multiple PVCs most likely causing her palpitations or fluttering. She is currently symptomatic blood pressure is improved patient will be discharged with follow-up with cardiology, PCP. Undiagnosed new problem with uncertain prognosis? @ -No Drug Therapy requiring intensive monitoring for toxicity (Heparin, Nitro, Insulin, Cardizem)? @ -No Were any procedures done? @ -No Diagnosis/symptom? @ -Palpitations, frequent PVCs Acute, or Chronic, or Acute on Chronic? @ -Acute Uncomplicated (without systemic symptoms) or Complicated (systemic symptoms)? @ -Uncomplicated Side effects of treatment? @ -No] Exacerbation, Progression, or Severe Exacerbation? @ -[No] Poses a threat to life or bodily function? How? (Chest pain, [place], [place], pneumonia, PE, COPD, DKA, ARF, appy, cholecystitis, CVA, Diverticulitis, Homicidal, Suicidal, threat to staff... and all critical care pts) @ -[No] - Lab Data Result diagrams: 12/31/22 12:29 12/31/22 12:29 Lab Results 12/31/22 12/31/22 12/31/22 Range/Units 12:29 12:29 12:29 WBC 8.3 (3.8-10.6) k/uL RBC 4.45 (3.80-5.40) m/uL Hgb 13.4 (11.4-16.0) gm/dL Hct 40.2 (34.0-46.0) % MCV 90.4 (80.0-100.0) fL MCH 30.1 (25.0-35.0) pg MCHC 33.3 (31.0-37.0) g/dL RDW 12.8 (11.5-15.5) % Plt Count 342 (150-450) k/uL MPV 7.7 Neutrophils % 64 % Lymphocytes % 29 % Monocytes % 4 % Eosinophils % 2 % Basophils % 1 % Neutrophils # 5.3 (1.3-7.7) k/uL Lymphocytes # 2.4 (1.0-4.8) k/uL Monocytes # 0.3 (0-1.0) k/uL Eosinophils # 0.1 (0-0.7) k/uL Basophils # 0.1 (0-0.2) k/uL PT 9.8 (9.0-12.0) sec INR 0.9 (<1.2) APTT 23.5 (22.0-30.0) sec D-Dimer 0.35 (<0.60) mg/L FEU Sodium 139 (137-145) mmol/L Potassium 3.7 (3.5-5.1) mmol/L Chloride 103 (98-107) mmol/L Carbon Dioxide 28 (22-30) mmol/L Anion Gap 8 mmol/L BUN 10 (7-17) mg/dL Creatinine 0.53 (0.52-1.04) mg/dL Est GFR (CKD-EPI)AfAm >90 (>60 ml/min/1.73 sqM) Est GFR (CKD-EPI)NonAf >90 (>60 ml/min/1.73 sqM) Glucose 95 (74-99) mg/dL Calcium 9.0 (8.4-10.2) mg/dL Magnesium 1.9 (1.6-2.3) mg/dL Total Bilirubin 0.3 (0.2-1.3) mg/dL AST 25 (14-36) U/L ALT 20 (4-34) U/L Alkaline Phosphatase 106 (38-126) U/L Troponin I (0.000-0.034) ng/mL NT-Pro-B Natriuret Pep pg/mL Total Protein 6.9 (6.3-8.2) g/dL Albumin 4.2 (3.5-5.0) g/dL 12/31/22 12/31/22 Range/Units 12:29 12:29 WBC (3.8-10.6) k/uL RBC (3.80-5.40) m/uL Hgb (11.4-16.0) gm/dL Hct (34.0-46.0) % MCV (80.0-100.0) fL MCH (25.0-35.0) pg MCHC (31.0-37.0) g/dL RDW (11.5-15.5) % Plt Count (150-450) k/uL MPV Neutrophils % % Lymphocytes % % Monocytes % % Eosinophils % % Basophils % % Neutrophils # (1.3-7.7) k/uL Lymphocytes # (1.0-4.8) k/uL Monocytes # (0-1.0) k/uL Eosinophils # (0-0.7) k/uL Basophils # (0-0.2) k/uL PT (9.0-12.0) sec INR (<1.2) APTT (22.0-30.0) sec D-Dimer (<0.60) mg/L FEU Sodium (137-145) mmol/L Potassium (3.5-5.1) mmol/L Chloride (98-107) mmol/L Carbon Dioxide (22-30) mmol/L Anion Gap mmol/L BUN (7-17) mg/dL Creatinine (0.52-1.04) mg/dL Est GFR (CKD-EPI)AfAm (>60 ml/min/1.73 sqM) Est GFR (CKD-EPI)NonAf (>60 ml/min/1.73 sqM) Glucose (74-99) mg/dL Calcium (8.4-10.2) mg/dL Magnesium (1.6-2.3) mg/dL Total Bilirubin (0.2-1.3) mg/dL AST (14-36) U/L ALT (4-34) U/L Alkaline Phosphatase (38-126) U/L Troponin I <0.012 (0.000-0.034) ng/mL NT-Pro-B Natriuret Pep 814 pg/mL Total Protein (6.3-8.2) g/dL Albumin (3.5-5.0) g/dL Disposition Clinical Impression: Frequent PVCs, Fasciculations Disposition: HOME SELF-CARE Condition: Stable Additional Instructions: Please return to the Emergency Department if symptoms worsen or any other concerns. Is patient prescribed a controlled substance at d/c from ED?: No Referrals: Ant Rojas DO [Primary Care Provider] - 1-2 days Todd Herrera MD [STAFF PHYSICIAN] - 1-2 days Time of Disposition: 13:31
[2022-12-31 14:00] VITALS: BP 142/92; PULSE 75; RESP 18
== END 2022-12-31 14:00 | disposition home or self-care (01) ==
LOC: EC 11:00
DX: I49.3 Ventricular premature depolarization (principal); R25.3 Fasciculation; F41.9 Anxiety disorder, unspecified; F12.90 Cannabis use, unspecified, uncomplicated; Z87.891 Personal history of nicotine dependence
CPT/HCPCS: 36415; 71046; 80053; 83735; 83880; 84484; 85025; 85379; 85610; 85730; 93005; 99284

== ENCOUNTER → 2023-04-15 | Outpatient (CLI) | payer BC ==
--- NOTE | 2023-04-16 10:10 | MM ---
Reason for Exam: Additional evaluation requested from prior study. Last screening mammogram was performed 12 month(s) ago. Patient History: Menarche at age 11. First Full-Term at age 19. Postmenopausal. Patient has history of breast feeding. Patient used Hormonal Contraceptives for 4 years. Cyst Aspiration on the Right side. Cyst Aspiration on the Left side. Cyst Aspiration on the Left side. Cyst Aspiration on the Left side. Cyst Aspiration on the Left side. Excisional Biopsy on the Left side. 10/04/2020, Benign Core Biopsy on the right side. 09/26/2020, Benign Core Biopsy on the left side. 09/26/2020, Benign Core Biopsy on the left side. 09/26/2020, Benign Core Biopsy on the left side. 07/28/2004, Benign Ultrasound-Guided Cyst Aspiration on the left side. 07/28/2004, Benign Cyst Aspiration on the left side. 07/28/2004, Benign Cyst Aspiration on the right side. 07/28/2004, Benign Ultrasound-Guided Cyst Aspiration on the left side. 07/28/2004, Benign Ultrasound-Guided Cyst Aspiration on the left side. 10/07/2021, Bilateral Implants. Risk Values: Rosemary 5 year model risk: 2.1%. NCI Lifetime model risk: 8.9%. Prior Study Comparison: 09/26/2020 Left Diagnostic Mammogram, [facility]. 04/08/2021 Bilateral Diagnostic Mammogram, [facility]. 04/13/2022 Bilateral MG diag mamm implants TENZIN w CAD, [facility]. Tissue Density: The breast tissue is heterogeneously dense. This may lower the sensitivity of mammography. Findings: Analyzed By CAD. Bilateral breast implants are in place. Benign appearing calcifications are seen bilaterally. Previous microclip marker is from prior bilateral biopsies. No evidence for mass or distortion. Overall Assessment: Benign, BI-RAD 2 Management: Diagnostic Mammogram of both breasts in 1 year. . Results were given to the patient verbally at the time of exam. Patient should continue monthly self-breast exams. A clinical breast exam by your physician is recommended on an annual basis. This exam should not preclude additional follow-up of suspicious palpable abnormalities. Note on Rosemary scores and lifetime risk: 1. A Rosemary score greater than 3% is considered moderate risk. If this is the case, consider specialist referral to assess eligibility for a risk reducing agent. 2. If overall lifetime risk for the development of breast cancer is 20% or higher, the patient may qualify for future screening with alternating mammogram and breast MRI. Electronically signed and approved by: Selvin Bowen M.D. Radiologis
== END | disposition home or self-care (01) ==
LOC: RADMAMWWP 15:16
PROVIDERS: ATTEND Surgery
DX: R92.8 Other abnormal and inconclusive findings on diagnostic imaging of breast (principal); Z78.0 Asymptomatic menopausal state
CPT/HCPCS: 77066

== ENCOUNTER → 2023-08-02 | Outpatient (CLI) | payer BC ==
--- NOTE | 2023-08-04 20:12 | BD ---
EXAMINATION TYPE: Axial Bone Density DATE OF EXAM: 08/02/2023 CLINICAL HISTORY: 62 years old Female. ICD-10 CODE: Z13.820 screen for osteoporosis Height: 65in Weight: 127lb FRAX RISK QUESTIONS: Family History (Parent hip fracture): yes Secondary Osteoporosis: RISK FACTORS HISTORY OF: Family History of Osteoporosis: yes Active: yes Postmenopausal woman: yes Take estrogen and/or progesterone medications: none current Lost more than 2 inches in height since high school: yes MEDICATIONS: Additional Medications: Additional History: EXAM MEASUREMENTS: Bone mineral densitometry was performed using the [employer] System. Bone mineral density as measured about the Lumbar spine is: ----- L1-L4(G/cm2): 1.133 T Score Values are as follows: ----- L1: -0.1 ----- L2: -1.2 ----- L3: -0.3 ----- L4: -0.1 ----- L1-L4: -0.4 Z Score Values are as follows: ----- L1: 1.6 ----- L2: 0.6 ----- L3: 1.5 ----- L4: 1.6 ----- L1-L4: 1.3 Bone mineral density has: Decreased -6.7% since study of: 07-16-20 Bone mineral density about the R hip (g/cm2): 0.608 Bone mineral density about the L hip (g/cm2): 0.605 T Score values are as follows: -----R Neck: -2.7 -----L Neck: -2.5 -----R Total: -3.2 -----L Total: -3.2 Z Score values are as follows: -----R Neck: -1.2 -----L Neck: -0.9 -----R Total: -1.9 -----L Total: -1.9 Bone mineral density has: Decreased -10.1% since study of: 07-16-20 FRAX%s: The graph provided illustrates a 23% chance for a major osteoporotic fx and a 3.4% chance for the hips probability for fx in 10 years time. IMPRESSION: Osteoporosis (T Score less than -2.5). There is increased fracture risk and therapy is usually indicated based on age. Re-Screen 1-2 years. NOTE: T-SCORE=SD OF THE YOUNG ADULT MEAN.
== END | disposition home or self-care (01) ==
LOC: RADBDWWP 07:19
PROVIDERS: ATTEND Family Medicine
DX: Z13.820 Encounter for screening for osteoporosis (principal); M81.0 Age-related osteoporosis without current pathological fracture; M85.88 Other specified disorders of bone density and structure, other site; Z78.0 Asymptomatic menopausal state
CPT/HCPCS: 77080

== ENCOUNTER → 2024-07-05 | Outpatient (CLI) | payer BC ==
--- NOTE | 2024-07-05 07:39 | MM ---
Reason for Exam: Follow-up at short interval from prior study. Last mammogram was performed 1 year(s) and 3 month(s) ago. Patient History: Menarche at age 11. First Full-Term at age 19. Postmenopausal. Patient has history of breast feeding. Patient used Hormonal Contraceptives for 4 years. Cyst Aspiration on the Right side. Cyst Aspiration on the Left side. Cyst Aspiration on the Left side. Cyst Aspiration on the Left side. Cyst Aspiration on the Left side. Excisional Biopsy on the Left side. 10/04/2020, Benign Core Biopsy on the right side. 09/26/2020, Benign Core Biopsy on the left side. 09/26/2020, Benign Core Biopsy on the left side. 09/26/2020, Benign Core Biopsy on the left side. 07/28/2004, Benign Ultrasound-Guided Cyst Aspiration on the left side. 07/28/2004, Benign Cyst Aspiration on the left side. 07/28/2004, Benign Cyst Aspiration on the right side. 07/28/2004, Benign Ultrasound-Guided Cyst Aspiration on the left side. 07/28/2004, Benign Ultrasound-Guided Cyst Aspiration on the left side. 10/07/2021, Bilateral Implants. Risk Values: Rosemary 5 year model risk: 2.2%. NCI Lifetime model risk: 8.6%. Prior Study Comparison: 09/26/2020 Left Diagnostic Mammogram, [facility]. 04/08/2021 Bilateral Diagnostic Mammogram, [facility]. 04/08/2021 Bilateral Diagnostic Ultrasound, [facility]. 04/13/2022 Bilateral MG diag mamm implants TENZIN w CAD, [facility]. 04/15/2023 Bilateral MG diag mamm implants TENZIN w CAD, [facility]. Tissue Density: The breasts are heterogeneously dense, which may obscure small masses. Findings: The pattern is symmetrical. Core markers are within the left breast. There are stable appearing calcifications present bilaterally. No significant interval change is evident. No suspicious groups of microcalcifications, spiculated or lobular masses, architectural distortion or other secondary signs of malignancy are mammographically apparent. Overall Assessment: Benign, BI-RAD 2 Management: Screening Mammogram of both breasts in 1 year. A negative mammogram report should not preclude additional follow up of suspicious palpable abnormalities. Patient should continue monthly self breast exam. A clinical breast exam by your physician is recommended on an annual basis and results should be correlated with mammographic findings. Note on Rosemary scores and lifetime risk: 1. A Rosemary score greater than 3% is considered moderate risk. If this is the case, consider specialist referral to assess eligibility for a risk reducing agent. 2. If overall lifetime risk for the development of breast cancer is 20% or higher, the patient may qualify for future screening with alternating mammogram and breast MRI. [facility], , 07/05/2024 7:36 AM. Electronically signed and approved by: Maciej Sánchez D.O. Radiologis
== END | disposition home or self-care (01) ==
LOC: RADMAMWWP 06:58
PROVIDERS: ATTEND Surgery
DX: R92.8 Other abnormal and inconclusive findings on diagnostic imaging of breast (principal); R92.333 Mammographic heterogeneous density, bilateral breasts; Z78.0 Asymptomatic menopausal state
CPT/HCPCS: 77062; 77066

== ENCOUNTER → 2024-07-27 | Outpatient (CLI) | payer BC ==
[2024-07-27 14:26] VITALS: BP 168/89; PULSE 89; RESP 16; TEMP 98.3
--- NOTE | 2024-07-27 14:48 | P.PN ---
Subjective Progress Note Date: 07/27/24 Principal diagnosis: fibrocystic breast disease 07-27-24 Principal diagnosis: Bilateral fibrocystic breast changes Shantanu is a 63 year old white female status post bilateral [place] [address] which was fibrocystic change, and 3 left breast core biopsies on 3421 with which were benign. The patient at this time does not note anything that she is concerned about. She is not complaining of any new breast lesions once masses or nodules. She underwent a repeat bilateral mammogram on 07-05-24 which was BIRAD 2. Follow-up diagnostic mammogram of the breast in 1 year was recommended. The patient at this time has bilateral breast implants in September 2021. These are subpectoral silicone implants. She is not complaining of any lumps, masses or nodules of concern. Rosemary risk evaluation 5 year: 2.2% Lifetime risk 8.6% Patient has declined risk reduction medication . Caffeine: 10/cups of coffee day nicotine: none reg-bromine: weekly Family history: father: lung cancer smoker nephew: leukemia Hormonal History: menarche: 11 , 1 miscarriage 1 , age at first : 18, breast fed: yes menopause: 51 BCP: 5 years hormones: none Surgical history: Right knee replacement Cyst removed in left breast implants breast bilateral varicose veins Medical History: none Social History: smoke: none alcohol: twice a week/ 1 or 2 beer drugs: Marijuana daily, for anxiety - Constitutional Constitutional: Reports sweats - EENT Comment: bilateral cataracts Eyes: denies blurred vision, denies pain Ears: deny: decreased hearing, tinnitus Ears, nose, mouth and throat: Reports headache, Denies sore throat - Breasts Breasts: bilateral: as per HPI - Cardiovascular Cardiovascular: Denies chest pain, Denies shortness of breath - Respiratory Respiratory: Denies cough - Gastrointestinal Gastrointestinal: Denies abdominal pain, Denies diarrhea, Denies nausea, Denies vomiting - Genitourinary (Female) Genitourinary: Denies dysuria, Denies hematuria - Menstruation Menstruation: Reports postmenopausal - Musculoskeletal Musculoskeletal: Denies myalgias - Integumentary Integumentary: Reports pruritus, Denies rash - Neurological Neurological: Denies numbness, Denies weakness - Psychiatric Psychiatric: Reports anxiety, Reports depression - Endocrine Endocrine: Denies fatigue, Denies weight change - Hematologic/Lymphatic Comment: none - Allergic/Immunologic Allergic/Immunologic: Reports as per HPI Objective - Vital Signs Vital signs: Vital Signs Temp 98.3 F 07/27/24 14:24 Pulse 89 07/27/24 14:24 Resp 16 07/27/24 14:24 BP 168/89 07/27/24 14:24 Pulse Ox 96 07/27/24 14:24 FiO2 Intake & Output 07/26/24 07/27/24 07/27/24 18:59 06:59 18:59 Weight 57.153 kg - Constitutional General appearance: Present: cooperative - EENT Eyes: Present: EOMI ENT: Present: hearing grossly normal - Neck Neck: Present: normal ROM - Respiratory Respiratory: bilateral: CTA - Cardiovascular Rhythm: regular Heart sounds: normal: S1, S2 - Integumentary Integumentary: Present: normal turgor - Musculoskeletal Musculoskeletal: Present: gait normal - Psychiatric Psychiatric: Present: A&O x's 3, appropriate affect, intact judgment & insight - Additional findings Additional findings: Breast examination: BRA: 36c Inspection: Bilateral grade 1/2 ptosis; bilateral breast lifts and implants Palpation: Right breast: Multi-positional exam fibrocystic changes no dominant masses or nodules of concern; implant in place Right axilla: No adenopathy of concern Left breast: Multiple positional exam fibrocystic changes, no dominant masses or nodules of concern; implant in place Left axilla: No adenopathy of concern Assessment and Plan Assessment: Impression: Fibrocystic breast changes Bilateral mammogram on 07-05-24 interpreted, BIRAD 2 Plan: Bilateral mammogram in 1 year with physician exam at that time CC: DR. Rojas
== END ==
LOC: WWCWWP 13:38
PROVIDERS: ATTEND Surgery
DX: N60.11 Diffuse cystic mastopathy of right breast (principal); N60.12 Diffuse cystic mastopathy of left breast; Z87.891 Personal history of nicotine dependence